=== PATIENT | female | born 1980 | race Hispanic/Latino ===

== ENCOUNTER → 2016-04-19 | Day surgery (SDC) | payer OTHER ==
--- NOTE | 2016-04-18 15:03 | History & Physical Pre-Op ---
General Information and HPI History of Present Illness: 35yo [id number] c/o perineocele and lax vagina requesting repair. The issue has provoked marital discord and sexcual dysfunction. Allergies/Medications Allergies: Coded Allergies: No Known Drug Allergies (05/16/15) Home Med list Yibuprofen (Motrin 800MG Tab) 800 MG TAB 800 MG PO Q6P PRN PAIN SCALE 4-6 Past History Surgical History Pertinent Surgical History: breast augmentation, abdominoplasty Review of Systems Review of Systems Constitutional: Reports: no symptoms. EENTM: Reports: no symptoms. Cardiovascular: Reports: no symptoms. Respiratory: Reports: no symptoms. GI: Reports: no symptoms. Genitourinary: Reports: no symptoms. Musculoskeletal: Reports: no symptoms. Skin: Reports: no symptoms. Neurological/Psychological: Reports: no symptoms. Hematologic/Endocrine: Reports: no symptoms. Immunologic/Allergic: Reports: no symptoms. All Other Systems: Reviewed and Negative Exam & Diagnostic Data Last 24 Hrs of Vital Signs/I&O vss Physical Exam: HEENT: NCAT chest: CTA CV: no S1S2 Pelvic: deferred to OR Ext : no c/c/e Assessment/Plan Assessment/Plan: perineocele perineocele repair As Ranked By This Provider Problem List: 1. Perineocele
[~2016-04-19] VITALS: Ht 167.6 cm; Wt 61.7 kg
[~2016-04-19] MED LIST: MOTRIN 800MG T800 MG PO
--- NOTE | 2016-04-25 08:21 | Operative Report ---
Operative/Inv Procedure Report Surgery Date: 04/12/16 Name of Procedure: Perineocele repair Pre-Operative Diagnosis: Perineocele Post-Operative Diagnosis: Same Estimated Blood Loss: less than 50ml Surgeon/Florist: DEBBIE ADRIAN MD Anesthesia: laryngeal mask airway Operative/Procedure Note Note: The patient was brought to the operating room placed on the OR table in the dorsal supine position. She was given adequate anesthesia and successfully intubated with an LMA. She was repositioned in a modified dorsal lithotomy and prepped and draped in the usual sterile fashion. The peritoneum was injected with 1% lidocaine with epinephrine and the like fashion and into the vagina as well. 2 Allis clamps are placed on the hymenal ring and an incision was made and the like fashion towards the perineal body on both sides. This was taken into the vagina and angled at the apex. The overlying perineal tissue and vaginal tissue was excised using electrocoagulation. Small bleeding areas were coagulated with the Bovie as well. 2 deep [id number] sutures were placed in the bulbocavernosus muscles and brought to the midline and tied. An anchor suture was placed into the vagina and the vaginal tissue was removed and submitted in a running locking fashion. The perineal body was closed with interrupted sutures deeply and then a layered from the original vaginal suture was brought through the perineal body and a subcuticular fashion back towards the vagina. This closure was similar to an episiotomy repair. Hemostasis was good at the end of the procedure the patient was awakened and sent to recovery in good condition. All needle, sponge, and management counts are correct at the end of procedure 2.
== END ==
LOC: STS 03-22 07:00
DX: N81.81 Perineocele (principal); N81.89 Other female genital prolapse
CPT/HCPCS: 81025; 88305; J0131; J2250